=== PATIENT | female | born 1990 | race Caucasian/White ===

== ENCOUNTER 2019-10-12 13:42 | Emergency (ER) | payer OTHER ==
[~2019-10-12] VITALS: Ht 160 cm; Wt 50.3 kg
--- NOTE | 2019-10-12 14:25 | NUR ---
Patient discharged to home in stable condition & brisk setady gait. Written and verbal after care instructions given to patient. Patient verbalized understanding and compliance of instructions. Stressed follow up with her auditor supervisor and primary doctor or return to ER for worsening s/s.
== END 2019-10-12 14:27 | disposition home or self-care (01) ==
LOC: ER 13:42
PROC: 0U9L0ZZ Drainage of Vestibular Gland, Open Approach (ICD-10-PCS; principal; 2019-10-12)
DX: N75.1 Abscess of Bartholin's gland (principal)
CPT/HCPCS: 56420; 99284; J3490; A4663